=== PATIENT | female | born 1965 | race Caucasian/White ===

== ENCOUNTER 2016-06-21 19:06 | Emergency (ER) | payer OTHER ==
[2016-06-21 21:12] LABS: HEMOGLOBIN 13.2 gm/dl (12.3-15.3); RED BLOOD COUNT 4.66 M/UL (4.00-5.10)
== END 2016-06-22 | disposition home or self-care (01) ==
LOC: ER1 19:06
PROVIDERS: Emergency Medicine
DX: R06.00 Dyspnea, unspecified (principal); R42 Dizziness and giddiness; R07.89 Other chest pain; R05 Cough; R68.83 Chills (without fever); R09.89 Other specified symptoms and signs involving the circulatory and respiratory systems; E11.9 Type 2 diabetes mellitus without complications; I10 Essential (primary) hypertension; E78.5 Hyperlipidemia, unspecified; J45.909 Unspecified asthma, uncomplicated; Z88.2 Allergy status to sulfonamides; Z88.8 Allergy status to other drugs, medicaments and biological substances
CPT/HCPCS: 36415; 70450; 71010; 80053; 83880; 84484; 84703; 85025; 85379; 87040; 94640; 94664; 96372; 99285; J2930

== ENCOUNTER 2016-06-22 10:10 | Emergency (ER) | payer OTHER ==
[2016-06-22 11:32] LABS: HEMOGLOBIN 13.1 gm/dl (12.3-15.3); RED BLOOD COUNT 4.59 M/UL (4.00-5.10)
[2016-06-22 12:02] LABS: WHITE BLOOD COUNT 12.6 K/UL (4.5-11.0)
== END 2016-06-22 14:10 | disposition home or self-care (01) ==
LOC: ER1 10:10
PROVIDERS: Physician Assistant
DX: K59.00 Constipation, unspecified (principal); E11.65 Type 2 diabetes mellitus with hyperglycemia; M79.1 Myalgia; I71.4 Abdominal aortic aneurysm, without rupture; I10 Essential (primary) hypertension; J45.909 Unspecified asthma, uncomplicated; Z88.0 Allergy status to penicillin; Z88.2 Allergy status to sulfonamides; Z88.8 Allergy status to other drugs, medicaments and biological substances; Z79.84 Long term (current) use of oral hypoglycemic drugs; Z79.899 Other long term (current) drug therapy
CPT/HCPCS: 36415; 74022; 80053; 81001; 82009; 82150; 82962; 83690; 84484; 85025; 93005; 96360; 96361; 96372; 99284; J1815

== ENCOUNTER 2016-07-02 21:11 | Emergency (ER) | payer OTHER ==
[2016-07-02 23:59] LABS: HEMOGLOBIN 12.1 gm/dl (12.3-15.3); RED BLOOD COUNT 4.31 M/UL (4.00-5.10); WHITE BLOOD COUNT 10.1 K/UL (4.5-11.0)
[2016-07-03 00:21] LABS: BUN/CREATININE RATIO 18 (0-10)
== END 2016-07-03 03:15 | disposition home or self-care (01) ==
LOC: ER1 21:11
PROVIDERS: Family Medicine
DX: R55 Syncope and collapse (principal); R42 Dizziness and giddiness; E11.9 Type 2 diabetes mellitus without complications; I10 Essential (primary) hypertension; Z88.0 Allergy status to penicillin; Z88.2 Allergy status to sulfonamides; Z79.4 Long term (current) use of insulin; Z79.84 Long term (current) use of oral hypoglycemic drugs; Z79.899 Other long term (current) drug therapy
CPT/HCPCS: 36415; 70450; 71010; 80053; 80178; 81001; 82550; 82553; 83874; 84443; 84484; 85025; 87086; 93005; 96374; 99284; J2405

== ENCOUNTER 2016-07-23 21:40 | Observation (INO) | payer OTHER ==
[~2016-07-23] VITALS: Ht 175.3 cm; Wt 127.0 kg
[2016-07-24 04:54] LABS: HEMOGLOBIN 12.4 gm/dl (12.3-15.3); RED BLOOD COUNT 4.41 M/UL (4.00-5.10); WHITE BLOOD COUNT 11.1 K/UL (4.5-11.0)
[2016-07-24 05:14] LABS: BUN/CREATININE RATIO 18 (0-10)
[2016-07-24] MEDS ORDERED: LANTUS SOL100 UNIT/1 SC (10:47)
[2016-07-24] MEDS ORDERED: HYZAAR 100-251 EACH PO (10:47)
[2016-07-24] MEDS ORDERED: PRAVACHOL80 MG PO (10:48)
[2016-07-24] MEDS ORDERED: SINGULAIR10 MG PO (10:48)
[2016-07-24] MEDS ORDERED: LASIX 40 MG TAB40 MG PO (10:48)
[2016-07-24] MEDS ORDERED: KLOR-CON M2020 MEQ PO (10:49)
[2016-07-24] MEDS ORDERED: FLOVENT 220.1 GM/INH INH (10:49)
[2016-07-24] MEDS ORDERED: JANUMET 50-1,01 EACH PO (10:50)
[2016-07-24] MEDS ORDERED: LO-DOSE ASPIRIN81 MG PO (10:50)
[2016-07-24] MEDS ORDERED: LITHIUM CARBON300 M4 PO (10:51)
[2016-07-24] MEDS ORDERED: VASOTEC 2.5 MG2.5 MG PO (10:51)
[2016-07-24] MEDS ORDERED: MIRALAX17 GM PO (10:52)
[2016-07-24] MEDS ORDERED: ZANTAC300 MG PO (10:53)
[2016-07-24] MEDS ORDERED: IPRAT-ALBUT 0.5-3 ML INH (10:54)
[2016-07-24] MEDS ORDERED: ANTIVERT 25MG T25 MG PO (16:13)
[2016-07-24] MEDS ORDERED: TESSALON PERLE100 MG PO (16:14)
[2016-07-24] MEDS ORDERED: IBUPROFEN600 MG PO (16:19)
== END 2016-07-24 17:42 | disposition home or self-care (01) ==
LOC: ER1 21:40 → ZEROF 07-24 05:27 → M/S 07-24 08:13
PROVIDERS: Physician Assistant; ADMIT Internal Medicine
DX: M94.0 Chondrocostal junction syndrome [Tietze] (principal); J06.9 Acute upper respiratory infection, unspecified; R42 Dizziness and giddiness; I10 Essential (primary) hypertension; E78.5 Hyperlipidemia, unspecified; E11.9 Type 2 diabetes mellitus without complications; R55 Syncope and collapse; K59.09 Other constipation; J45.909 Unspecified asthma, uncomplicated; Z87.19 Personal history of other diseases of the digestive system; Z79.82 Long term (current) use of aspirin; Z79.4 Long term (current) use of insulin; Z79.899 Other long term (current) drug therapy; Z82.49 Family history of ischemic heart disease and other diseases of the circulatory system; Z90.49 Acquired absence of other specified parts of digestive tract; Z88.2 Allergy status to sulfonamides; Z88.8 Allergy status to other drugs, medicaments and biological substances
CPT/HCPCS: ECHO; 36415; 71010; 80053; 82550; 82553; 82962; 83735; 83880; 84439; 84443; 84484; 85025; 93005; 93270; 93306; 94640; 94664; 99285; G0378; Q0177

== ENCOUNTER 2016-08-13 11:54 | Emergency (ER) | payer OTHER ==
[~2016-08-13 11:54] MED LIST: ANTIVERT 25MG T25 MG PO; FLOVENT 220.1 GM/INH INH; HYZAAR 100-251 EACH PO; IBUPROFEN600 MG PO; IPRAT-ALBUT 0.5-3 ML INH; JANUMET 50-1,01 EACH PO; KLOR-CON M2020 MEQ PO; LANTUS SOL100 UNIT/1 SC; LASIX 40 MG TAB40 MG PO; LITHIUM CARBON300 M4 PO; LO-DOSE ASPIRIN81 MG PO; MIRALAX17 GM PO; PRAVACHOL80 MG PO; SINGULAIR10 MG PO; TESSALON PERLE100 MG PO; VASOTEC 2.5 MG2.5 MG PO; ZANTAC300 MG PO
== END 2016-08-13 15:25 | disposition home or self-care (01) ==
LOC: ER1 11:54
DX: I10 Essential (primary) hypertension (principal); E11.9 Type 2 diabetes mellitus without complications; J44.9 Chronic obstructive pulmonary disease, unspecified; Z90.49 Acquired absence of other specified parts of digestive tract; Z88.2 Allergy status to sulfonamides; Z88.8 Allergy status to other drugs, medicaments and biological substances; Z79.899 Other long term (current) drug therapy; Z79.4 Long term (current) use of insulin
CPT/HCPCS: 99283